=== PATIENT | male | born 1955 | race Two or more races ===

== ENCOUNTER 2018-03-31 19:42 | Emergency (ER) | payer MEDICARE ==
--- NOTE | 2018-03-31 20:23 | ED ---
General Adult HPI - General Chief complaint: Psychiatric Symptoms Stated complaint: Petition Time Seen by Provider: 03/31/18 19:48 Source: patient, RN notes reviewed, old records reviewed Mode of arrival: ambulatory Limitations: no limitations - History of Present Illness Initial comments: 62-year-old male presenting for psychiatric evaluation. Patient has been petitioned by his daughter. It is felt that the patient is delusional, he is making poor decisions including wanting to sell his house and give way his belongings. Patient denies any suicidal or homicidal ideation. He is alert and oriented 3. He is brought in under court ordered petition. No new physical complaints. - Related Data Home Medications Medication Instructions Recorded Confirmed Carvedilol [Coreg] 12.5 mg PO DAILY 03/31/18 03/31/18 HYDROcodone/APAP 5-325MG [[place] 1 tab PO Q4-6H PRN 03/31/18 03/31/18 5-325] Losartan Potassium 100 mg PO DAILY 03/31/18 03/31/18 Omeprazole 20 mg PO DAILY 03/31/18 03/31/18 Simvastatin [Zocor] 40 mg PO DAILY 03/31/18 03/31/18 Spironolactone [Aldactone] 25 mg PO DAILY 03/31/18 03/31/18 Tamsulosin [Flomax] 0.4 mg PO DAILY 03/31/18 03/31/18 Warfarin [Coumadin] 2.5 mg PO SUTUTHSA 03/31/18 03/31/18 Warfarin [Coumadin] 5 mg PO MOWEFR 03/31/18 03/31/18 Allergies Allergy/AdvReac Type Severity Reaction Status Date / Time No Known Allergies Allergy Verified 03/31/18 20:27 Review of Systems ROS Statement: Those systems with pertinent positive or pertinent negative responses have been documented in the HPI. ROS Other: All systems not noted in ROS Statement are negative. Past Medical History Past Medical History: Atrial Fibrillation, COPD, Hyperlipidemia, Hypertension History of Any Multi-Drug Resistant Organisms: None Reported Past Surgical History: Orthopedic Surgery Past Psychological History: No Psychological Hx Reported Smoking Status: Former smoker Past Alcohol Use History: None Reported Past Drug Use History: None Reported General Exam Limitations: no limitations General appearance: alert, in no apparent distress Head exam: Present: atraumatic, normocephalic Eye exam: Present: normal appearance, PERRL, EOMI ENT exam: Present: normal exam Neck exam: Present: normal inspection. Absent: tenderness, meningismus Respiratory exam: Present: normal lung sounds bilaterally. Absent: respiratory distress Cardiovascular Exam: Present: regular rate, normal rhythm GI/Abdominal exam: Present: soft. Absent: distended, tenderness, guarding Extremities exam: Present: normal inspection, normal capillary refill. Absent: pedal edema Neurological exam: Present: alert, oriented X3, CN II-XII intact. Absent: motor sensory deficit Psychiatric exam: Present: normal affect, normal mood. Absent: anxious, manic, homicidal ideation, suicidal ideation Skin exam: Present: warm, dry, intact. Absent: cyanosis, diaphoretic Course Vital Signs 03/31/18 19:49 Temperature 98.5 F Pulse Rate 105 H Respiratory 18 Rate Blood Pressure 165/93 O2 Sat by Pulse 99 Oximetry Medical Decision Making - Medical Decision Making Patient is brought in with petition for psychiatric evaluation. Patient is alert and oriented, denies suicidal or homicidal ideation. He is evaluated by EPS and is able to defend all aspects of the petition logically. EPS along with the psychiatrist monotype caster feel the patient is stable for discharge. No need for inpatient treatment. Patient is given referral for outpatient therapy. He will return with worsening or changing symptoms. - Lab Data Lab Results 03/31/18 Range/Units 20:01 Urine Opiates Screen Detected H (NotDetected) Ur Oxycodone Screen Not Detected (NotDetected) Urine Methadone Screen Not Detected (NotDetected) Ur Propoxyphene Screen Not Detected (NotDetected) Ur Barbiturates Screen Not Detected (NotDetected) U Tricyclic Antidepress Not Detected (NotDetected) Ur Phencyclidine Scrn Not Detected (NotDetected) Ur Amphetamines Screen Not Detected (NotDetected) U Methamphetamines Scrn Not Detected (NotDetected) U Benzodiazepines Scrn Not Detected (NotDetected) Urine Cocaine Screen Not Detected (NotDetected) U Marijuana (THC) Screen Detected H (NotDetected) Disposition Clinical Impression: Bipolar disorder Disposition: HOME SELF-CARE Condition: Good Instructions: Bipolar Disorder (ED) Additional Instructions: Please follow up with psychiatry as an outpatient. Return with worsening or changing symptoms. Is patient prescribed a controlled substance at d/c from ED?: No Referrals: Kong Kapadia MD [Primary Care Provider] - 1-2 days Time of Disposition: 22:12
[2018-03-31 20:28] LABS: Amphetamine Screen,Urine Not Detected (NotDetected); Barbiturate Screen,Urine Not Detected (NotDetected); Benzodiazepines Screen,Urine Not Detected (NotDetected); Cocaine Screen,Urine Not Detected (NotDetected); Methadone Screen, Urine Not Detected (NotDetected); Opiate Screen,Urine Detected (NotDetected); Oxycodone Screen, Urine Not Detected (NotDetected); Phencyclidine Screen,Urine Not Detected (NotDetected); Tricyclic Antidepressant,Urine Not Detected (NotDetected); Urn Cannabinoid Scrn Detected (NotDetected)
[2018-03-31 22:19] VITALS: BP 149/79; PULSE 77; RESP 16; TEMP 98
== END 2018-03-31 22:19 | disposition home or self-care (01) ==
LOC: EC 19:42
DX: F31.9 Bipolar disorder, unspecified (principal); F22 Delusional disorders; I48.91 Unspecified atrial fibrillation; E78.5 Hyperlipidemia, unspecified; I10 Essential (primary) hypertension; Z87.891 Personal history of nicotine dependence; Z79.01 Long term (current) use of anticoagulants; Z79.899 Other long term (current) drug therapy
CPT/HCPCS: 80306; 82075; 99284